=== PATIENT | male | born 1945 | race Caucasian/White ===

== ENCOUNTER 2018-03-12 14:59 | Emergency (ER) | payer OTHER, MEDICARE ==
[~2018-03-12] VITALS: Ht 180.3 cm; Wt 96.8 kg
[~2018-03-12 14:59] MED LIST: CETIRIZINE; PRILOSEC40 MG PO; SINGULAIR10 MG PO; XYAL5 MG PO
[2018-03-12 15:03] VITALS: TEMP 98.6
[2018-03-12 15:25] LABS: BASO # 0.1 (0.0-0.2); EOS # 0.1 (0.0-0.7); EOS % 1.7 % (0-4.0); GRAN # 5.2 (1.4-6.5); GRAN % 74.3 % (42.2-75.2); HEMATOCRIT 46.4 % (42.0-52.0); HEMOGLOBIN 16.2 g/dl (13.5-18.0); LYMPH # 0.9 (1.2-3.4); LYMPH % 13.3 % (20.0-51.0); MEAN CELL VOLUME 100 fl (80.0-100.0); MEAN CORPUSCULAR HEMOGLOBIN 35 pg (27.0-31.0); MEAN CORPUSCULAR HGB CONC 35 g/dl (33.0-37.0); MEAN PLATELET VOLUME 11.8 fl (7.4-10.4); MONO # 0.7 (0.1-0.6); MONO % 9.3 % (1.7-9.3); PLATELET COUNT 151 K/mm3 (130-400); RED BLOOD COUNT 4.66 M/mm3 (4.20-5.60); REDCELL DISTRIBUTION WIDTH-CV 13.1 % (11.5-14.5)
[2018-03-12 15:28] LABS: INR 1.1 (0.8-3.0); PROTHROMBIN TIME 12.1 SECONDS (9.7-12.8)
[2018-03-12 15:39] LABS: ALANINE AMINOTRANSFERASE 41 U/L (21-72); ALBUMIN 4.2 gm/dL (3.5-5.0); ALKALINE PHOSPHATASE 61 U/L (50-136); ANION GAP 7 mmol/L (7-16); AST,SGOT 25 U/L (15-37); BILIRUBIN,TOTAL 0.8 mg/dL (0.0-1.0); BLOOD UREA NITROGEN 16 mg/dL (9-20); CALCIUM 8.5 mg/dL (8.4-10.2); CARBON DIOXIDE 30 mmol/L (22-30); CHLORIDE 101 mmol/L (98-107); CREATINE KINASE 52 U/L (55-170); CREATININE, serum 0.94 mg/dL (0.66-1.25); GLUCOSE 89 mg/dL (74-106); LIPASE 71 U/L (23-300); POTASSIUM 3.9 mmol/L (3.4-5.0); SODIUM 138 mmol/L (137-145); TOTAL PROTEIN 7.2 gm/dL (6.4-8.2)
[2018-03-12 15:52] LABS: TROPONIN-I < 0.012 ng/mL (0.000-0.034)
[2018-03-12 18:10] VITALS: BP 137/88; PULSE 67
== END 2018-03-12 18:10 | disposition home or self-care (01) ==
LOC: COL.ER 14:59
PROVIDERS: Emergency Medicine
DX: J40 Bronchitis, not specified as acute or chronic (principal); R09.1 Pleurisy; Z98.890 Other specified postprocedural states
CPT/HCPCS: J1885; J7040

== ENCOUNTER → 2019-04-09 | Outpatient (CLI) | payer OTHER | LOC: COL.RAD 12:45 | DX: K21.9 Gastro-esophageal reflux disease without esophagitis (principal); J30.1 Allergic rhinitis due to pollen; K22.8 Other specified diseases of esophagus ==

== ENCOUNTER → 2019-04-12 | Outpatient (CLI) | payer OTHER | LOC: COL.PUL 04-09 12:45 | DX: K21.9 Gastro-esophageal reflux disease without esophagitis (principal); J30.1 Allergic rhinitis due to pollen ==

== ENCOUNTER → 2021-06-15 | Outpatient (CLI) | payer OTHER | LOC: ZCOL.LAB 16:11 | DX: R05.1 Acute cough (principal); Z20.822 Contact with and (suspected) exposure to COVID-19 ==